=== PATIENT | female | born 1995 | race Two or more races ===

== ENCOUNTER 2017-01-14 15:57 | Emergency (ER) | payer SELFPAY ==
[~2017-01-14 15:57] MED LIST: ATARAX25 MG PO; MEDROL4 MG/DOSE- PO
== END 2017-01-14 17:30 | disposition left against medical advice (07) ==
LOC: EDMED 15:57
DX: Z53.21 Procedure and treatment not carried out due to patient leaving prior to being seen by health care provider (principal)